=== PATIENT | male | born 1985 | race Two or more races ===

== ENCOUNTER 2020-09-10 03:55 | Inpatient (IN) | payer OTHER ==
[~2020-09-10] VITALS: Ht 175.3 cm; Wt 63.5 kg
--- NOTE | 2020-09-10 04:00 | NUR ---
Pt bibRA c/o LLQ pain x2days with nausea. Pt aaox4 breathing evenly and unlabored. Pt states that he only had one episode of emesis. Pt attached to monitor and pox. MD at bedside for eval. left ac 20g initated and blood obtained and sent to lab. Pt given blanket and call light within reach
[2020-09-10] MEDS ORDERED: ONDANSETRON HCL/PF 4 MG/2 ML VIAL ONE (04:29)
[2020-09-10] MEDS ORDERED: IV NS 0.9% 1,000 ML BAG IV ONE (04:30)
[2020-09-10] MEDS ORDERED: ONDANSETRON HCL/PF 4 MG/2 ML VIAL IVP ONE (04:30)
[2020-09-10] MEDS ORDERED: MORPHINE SULFATE INJ 4 MG/ML DISP.SYRIN ONE (04:30)
[2020-09-10] MEDS ORDERED: MORPHINE SULFATE INJ 2 MG/ML DISP.SYRIN IV ONE (04:30)
[2020-09-10 04:32] LABS: BASOPHILS % (AUTO) 0.3 % (0.0-2.0); EOSINOPHILS % (AUTO) 0.1 % (0.0-6.0); HEMATOCRIT 45 % (39-51); HEMOGLOBIN 15.9 g/dL (13.5-17.5); LYMPHOCYTES # (AUTO) 0.4 /CMM (0.8-4.8); LYMPHOCYTES % (AUTO) 2.6 % (20.0-44.0); MEAN CORPUSCULAR HGB CONC 35 g/dl (31.0-36.0); MEAN CORPUSCULAR VOLUME 89 fL (80-96); MONOCYTES % (AUTO) 6.3 % (2.0-12.0); NEUTROPHILS % (AUTO) 90.7 % (43.0-81.0); PLATELET COUNT (AUTO) 175 /CMM (150-450); RED BLOOD CELL COUNT(AUTO) 5.11 MIL/uL (4.5-6.0); WHITE BLOOD COUNT (AUTO) 15.5 K/uL (4.3-11.0)
[2020-09-10 04:37] LABS: BILIRUBIN,URINE SMALL (NEGATIVE); COLOR,URINE YELLOW (YELLOW); LEUKOCYTE ESTERASE ,URINE NEGATIVE (NEGATIVE); NITRITE, URINE NEGATIVE (NEGATIVE); PROTEIN,URINE TRACE mg/dl (NEGATIVE); UGLUCOSE NEGATIVE (NEGATIVE); UROBILINOGEN,URINE 0.2 EU/dL (0.2)
--- NOTE | 2020-09-10 04:38 | NUR ---
xray at bedside
[2020-09-10 04:43] LABS: BACTERIA,URINE None seen /HPF (None Seen); MUCUS,URINE Few /LPF (None Seen); SQUAMOUS EPITHELIAL CELL,UR Few /HPF (None Seen); WBC,URINE 0-2 /HPF (0-3)
--- NOTE | 2020-09-10 05:13 | NUR ---
Covid Antigen swab collected and sent to lab.
[2020-09-10] MEDS ORDERED: PIPERACILLIN /TAZOBACTAM 3.375 G VIAL IV ONE (05:18)
[2020-09-10 05:22] LABS: ALBUMIN 3.9 g/dL (3.4-5.0); BILIRUBIN,DIRECT 0.4 mg/dL (0.0-0.2); BILIRUBIN,TOTAL 2.3 mg/dL (0.2-1.0); CALCIUM, SERUM 8.9 mg/dL (8.5-10.1); POTASSIUM 3.6 mmol/L (3.5-5.1); TOTAL PROTEIN, SERUM 7.8 g/dL (6.4-8.2)
[2020-09-10] MEDS ORDERED: PIPERACILLIN /TAZOBACTAM 3.375 G in IV D5W 50 ML IV ONE (05:30)
--- NOTE | 2020-09-10 05:40 | NUR ---
Dr Mancera at bedside
--- NOTE | 2020-09-10 05:45 | NUR ---
consent for surgery signed
--- NOTE | 2020-09-10 05:51 | NUR ---
Call from lab. rapid covid negative.
[2020-09-10] MEDS ORDERED: ACETAMINOPHEN 325 MG TABLET PO PRN (06:00)
[2020-09-10] MEDS ORDERED: ZOLPIDEM TARTRATE 5 MG TABLET PO PRN (06:00)
[2020-09-10] MEDS ORDERED: ONDANSETRON HCL/PF 4 MG/2 ML VIAL IVP PRN (06:00)
[2020-09-10] MEDS ORDERED: PIPERACILLIN /TAZOBACTAM 3.375 G in IV D5W 50 ML IV SCH (06:00)
[2020-09-10] MEDS ORDERED: HYDROCODONE/APAP 5/325MG TABLET PO PRN (06:00)
[2020-09-10] MEDS ORDERED: MORPHINE SULFATE INJ 2 MG/ML DISP.SYRIN IV PRN ×2 (06:00→10:00)
[2020-09-10] MEDS ORDERED: Z GUARD REMEDY 2 OZ OINT TP PRN (06:00)
[2020-09-10] MEDS ORDERED: MAGNESIUM HYDROXIDE 30 ML UDC PO PRN (06:00)
--- NOTE | 2020-09-10 06:39 | NUR ---
taken to surgery. Gave report and consent forms to OR Nurse
[2020-09-10] MEDS ORDERED: SUCCINYLCHOLINE CHLORIDE 20 MG/ML VIAL ONE (06:45)
[2020-09-10] MEDS ORDERED: FENTANYL PF 100MCG/2ML AMPUL ONE (06:45)
[2020-09-10] MEDS ORDERED: MIDAZOLAM HCL 2 MG/2ML VIAL ONE (06:45)
[2020-09-10] MEDS ORDERED: ROCURONIUM BROMIDE 50 MG/5 ML ONE (06:46)
[2020-09-10] MEDS ORDERED: ANESTHESIA TRAY IN PYXIS 1 EA TRAY MC ONE (06:53)
[2020-09-10] MEDS ORDERED: BUPIVACAINE MPF 0.5% W/EPI INJ 30 ML VIAL ONE (06:53)
--- NOTE | 2020-09-10 07:02 | NUR ---
gave report to DAVID Obrien for vamsi
--- NOTE | 2020-09-10 08:40 | NUR ---
MS/RN NOTES RECEIVED PATIENT AND REPORT FROM OR NURSE. PATIENT IS ALERT AND ORIENTED X4, PATIENT IN ROOM AIR, SATURATING WELL. VITAL SIGNS TAKEN AND RECORDED, NO RESPIRATORY DISTRESS NOTED. NO COMPLAINT OF PAIN. PHYSICAL ASSESSMENT WAS DONE. WILL CONTINUE TO MONITOR.
[2020-09-10] MEDS ORDERED: PIPERACILLIN /TAZOBACTAM 3.375 G in IV D5W 100 ML IV SCH (10:00)
[2020-09-10] MEDS: METRONIDAZOLE 500MG/ NS 100ML 500 MG in PREMIX 1 EA IV SCH ×2 (10:26→17:19)
[2020-09-10] MEDS: IV NS 0.9% 1,000 ML IV PRN (10:29)
[2020-09-10] MEDS: ANCEF 1 GM/50 ML D5W IV SCH ×2 (15:47→22:43)
[2020-09-10] MEDS: HYDROCODONE/APAP 5/325MG TABLET PO PRN ×2 (17:19→21:31)
--- NOTE | 2020-09-10 18:43 | NUR ---
MS/RN CLOSING NOTES PATIENT IS IN BED COMFORTABLY. IS ALERT AND ORIENTED X4, PATIENT IN ROOM AIR, SATURATING WELL. POST APPENDECTOMY. REPORTED + FLATUS TODAY. ON LIQUID DIET. VITAL SIGNS TAKEN AND RECORDED, NO RESPIRATORY DISTRESS NOTED. PRN PAIN MEDS GIVEN ORDERED. WILL ENDORSED TO THE BUSINESS OPERATIONS COORDINATOR FOR [facility].
--- NOTE | 2020-09-10 19:00 | NUR ---
RECEIVED IN BED ALERT AND ORIENTATED SMILING ABD ROUND STATES PASSING FLATUS NO PAIN AT THIS TIME EATING A CLEAR LIQ DIET
[2020-09-10 20:00] VITALS: BP 113/69
[2020-09-11] MEDS: MAG HYDROX/AL HYDROX/SIMETH 30 ML UDC PO PRN ×2 (00:54→14:51)
[2020-09-11] MEDS: IV NS 0.9% 1,000 ML IV PRN ×2 (00:56→17:18)
[2020-09-11] MEDS: METRONIDAZOLE 500MG/ NS 100ML 500 MG in PREMIX 1 EA IV SCH ×3 (01:43→17:11)
[2020-09-11] MEDS: HYDROCODONE/APAP 5/325MG TABLET PO PRN (04:02)
--- NOTE | 2020-09-11 04:24 | NUR ---
tolerated a clear liquid dinner medicated x2 with NORCO TAB 1 for abd pain and each time effective @ 2100 and 0400. patient ambulated in the corridor around times 2 states he is passing FLATUS medicated for heartburn and effective. Explained to the patient about walking a sitting on the toilet will help relieve the "gas" form his body. incisions CDI
[2020-09-11] MEDS: ANCEF 1 GM/50 ML D5W IV SCH ×3 (06:35→23:10)
[2020-09-11 06:42] LABS: BASOPHILS % (AUTO) 0.1 % (0.0-2.0); HEMATOCRIT 43 % (39-51); HEMOGLOBIN 14.7 g/dL (13.5-17.5); LYMPHOCYTES # (AUTO) 0.6 /CMM (0.8-4.8); LYMPHOCYTES % (AUTO) 4.4 % (20.0-44.0); MEAN CORPUSCULAR HGB CONC 35 g/dl (31.0-36.0); MEAN CORPUSCULAR VOLUME 90 fL (80-96); MONOCYTES # (AUTO) 0.8 /CMM (0.1-1.30); MONOCYTES % (AUTO) 6.4 % (2.0-12.0); NEUTROPHILS # (AUTO) 11.3 /CMM (1.8-8.9); NEUTROPHILS % (AUTO) 89.1 % (43.0-81.0); PLATELET COUNT (AUTO) 190 /CMM (150-450); RED BLOOD CELL COUNT(AUTO) 4.74 MIL/uL (4.5-6.0); WHITE BLOOD COUNT (AUTO) 12.7 K/uL (4.3-11.0)
--- NOTE | 2020-09-11 07:31 | NUR ---
MS RN OPENING NOTES RECEIVED PATIENT IN BED, AWAKE, A/O X4. PATIENT ON ROOM AIR; BREATHING EVEN AND UNLABORED. MILD PAIN AT THIS TIME. LAC G # 20 IV ACCESS PRESENT, INTACT AND INFUSING NS @100 MLS/HR. SAFETY PRECAUTIONS IN PLACE; BED IN LOW POSITION AND LOCKED, RAILS UPX2, CALL LIGHT WITHIN REACH. WILL CONTINUE TO MONITOR PATIENT.
[2020-09-11 07:35] LABS: CALCIUM, SERUM 8.6 mg/dL (8.5-10.1); CREATININE 0.9 mg/dL (0.6-1.3); MAGNESIUM 2.1 mg/dL (1.8-2.4); PHOSPHORUS 2.8 mg/dL (2.5-4.9); POTASSIUM 3.7 mmol/L (3.5-5.1)
[2020-09-11 08:00] VITALS: BP 122/80
[2020-09-11 16:00] VITALS: BP 129/81
--- NOTE | 2020-09-11 18:38 | NUR ---
MS RN CLOSING NOTE PATIENT ON BED, ALERT AND ORIENTED X 4 WITH NO SIGNS OF DISTRESS. PATIENT ON ROOM AIR, TOLERATED WELL WITH NO SIGNS OF RESPIRATORY DISTRESS. PATIENT DENIES ANY PAIN OR DISCOMFORT AT THIS TIME. IV ACCESS ON THE LEFT AC GAUGE 20, COVERED WITH TEGADERM, INTACT AND PATENT. PATIENT WITH ONGOING IVF OF NORMAL SALINE RUNNING AT 100ML/HR, INFUSING WELL. SAFETY MEASURES MAINTAINED. BED IN LOWEST POSITION, BRAKES LOCKED AND SIDE RAILS UP FOR SAFETY AND BED MOBILITY. CALL LIGHT WITHIN REACH AT ALL TIMES. WILL ENDORSE CONTINUITY OF CARE TO ONCOMING SHIFT.
--- NOTE | 2020-09-11 19:40 | NUR ---
MS RN OPENING NOTE PATIENT A/OX4; ABLE TO MAKE NEEDS KNOWN. ON ROOM AIR; TOLERATING WELL WITH NO SOB. 3 ABDOMINAL DRESSINGS NOTED; KEPT C/D/I. LAC #20G INFUSING NS 100ML/HR; PATENT AND INTACT. DENIES DISCOMFORT AT THIS TIME. SAFETY MEASURES IN PLACE: BED IN LOWEST LOCKED POSITION, BED ALARMS ON, CALL LIGHT WITHIN EASY REACH. PATIENT IS STABLE AT THIS TIME; WILL CONTINUE PLAN OF CARE.
[2020-09-11 20:00] VITALS: BP 142/85
[2020-09-12] MEDS: METRONIDAZOLE 500MG/ NS 100ML 500 MG in PREMIX 1 EA IV SCH ×2 (02:04→10:14)
[2020-09-12] MEDS: ANCEF 1 GM/50 ML D5W IV SCH ×2 (06:17→14:25)
--- NOTE | 2020-09-12 06:25 | NUR ---
MS RN CLOSING NOTE PATIENT A/OX4; ABLE TO MAKE NEEDS KNOWN. ON ROOM AIR; TOLERATING WELL WITH NO SOB. 3 ABDOMINAL DRESSINGS NOTED; KEPT C/D/I. LAC #20G INFUSING NS @ 100ML/HR; PATENT AND INTACT. DENIES DISCOMFORT AT THIS TIME. SAFETY MEASURES IN PLACE: BED IN LOWEST LOCKED POSITION, BED ALARMS ON, CALL LIGHT WITHIN EASY REACH. PATIENT IS STABLE AT THIS TIME; WILL ENDORSE PLAN OF CARE TO ONCOMING MORNING RN.
[2020-09-12 06:28] LABS: BASOPHILS % (AUTO) 0.3 % (0.0-2.0); EOSINOPHILS % (AUTO) 2.2 % (0.0-6.0); HEMATOCRIT 38 % (39-51); HEMOGLOBIN 13.2 g/dL (13.5-17.5); LYMPHOCYTES # (AUTO) 0.8 /CMM (0.8-4.8); LYMPHOCYTES % (AUTO) 8.8 % (20.0-44.0); MEAN CORPUSCULAR HGB CONC 34 g/dl (31.0-36.0); MEAN CORPUSCULAR VOLUME 89 fL (80-96); MONOCYTES # (AUTO) 0.8 /CMM (0.1-1.30); MONOCYTES % (AUTO) 8.9 % (2.0-12.0); NEUTROPHILS # (AUTO) 7.5 /CMM (1.8-8.9); NEUTROPHILS % (AUTO) 79.8 % (43.0-81.0); PLATELET COUNT (AUTO) 208 /CMM (150-450); WHITE BLOOD COUNT (AUTO) 9.4 K/uL (4.3-11.0)
[2020-09-12 06:37] LABS: CALCIUM, SERUM 7.6 mg/dL (8.5-10.1); CREATININE 0.7 mg/dL (0.6-1.3); POTASSIUM 3.7 mmol/L (3.5-5.1)
--- NOTE | 2020-09-12 07:00 | NUR ---
MS RN OPENING NOTES RECEIVED PT AWAKE IN BED AT THIS TIME. AOX4.PT ABLE TO MAKE NEEDS KNOWN. NO SOB NOTED, NO S/O ANY APPARENT DISTRESS AT THIS TIME, NO C/O OF PAIN. PT STABLE ON RA. RESPIRATIONS EVEN AND UNLABORED. PT NOTED WITH THREE ABDOMINAL DRESSING, CLEAN AND DRY. IV ACCESS IN LAC G#20, INTACT PATENT AND FLUSHING WELL. ASPIRATION, FALL AND SAFETY PRECAUTIONS IN PLACE AND MAINTAINED AT ALL TIMES. BED IN LOWEST LOCKED POSITION, HOB ELEVATED, SIDE RAILS UP X 2. CALL LIGHT AND TABLE WITHIN REACH. WILL CONTINUE TO MONITOR
[2020-09-12 08:00] VITALS: BP 125/83
[2020-09-12] MEDS ORDERED: METR-147 PO (10:13)
--- NOTE | 2020-09-12 12:19 | NUR ---
PATIENT SEEN BY DR. TURNER WITH ORDERS TO CHANGE DIET TO REGULAR. ORDERS MADE AND AND READ BACK WITH MD. ORDERS VERIFIED AND CARRIED OUT. WILL FOLLOW UP WITH KITCHEN. WILL CLOSELY MONITOR PATIENT.
--- NOTE | 2020-09-12 16:26 | NUR ---
MS APPLE PICKING SUPERVISOR NOTES PT DISCHARGE TO HOME AT THIS TIME. PT MEDICALLY STABLE AND CLEARED FOR DISCHARGE BY KASH LEWIS. ALL DISCHARGE INSTRUCTIONS PROVIDED. PT VERBALIZED UNDERSTANDING. ALL CARE, NEEDS, TREATMENT AND MEDICATIONS ADMINISTERED ANTICIPATED PER ORDER. ALL BELONGINGS ACCOUNTED FOR, SIGNED BY PT AND WITH PT. ID BAND REMOVED. IV ACCESS REMOVED, PRESSURE APPLIED, SECURED WITH GAUZE AND TAPE. NO S/O BLEEDING OR INFILTRATION NOTED. PT TRANSPORTED BY WHEEL CHAIR OUT OF UNIT IN STABLE CONDITION BY FERNANDO ARECHIGA DIANE, CHARGE NURSE AND KASH LEWIS, AWARE.
== END 2020-09-12 16:30 | disposition home or self-care (01) | DRG 233 ==
LOC: ER 03:58 → MED 06:27
PROVIDERS: ADMIT Nurse Practitioner Acute Care; ATTEND Nurse Practitioner Acute Care
PROC: 0DTJ4ZZ Resection of Appendix, Percutaneous Endoscopic Approach (ICD-10-PCS; principal; 2020-09-10)
DX: K35.33 Acute appendicitis with perforation, localized peritonitis, and gangrene, with abscess (principal); E87.1 Hypo-osmolality and hyponatremia; E86.1 Hypovolemia; Z20.822 Contact with and (suspected) exposure to COVID-19; R73.9 Hyperglycemia, unspecified; K52.9 Noninfective gastroenteritis and colitis, unspecified
CPT/HCPCS: 36415; 80048-TC; 80076-TC; 81001; 83690-TC; 83735-TC; 84100-TC; 85025-TC; 87070-TC; 87075-TC; 87081-TC; 87186-TC; 88304-TC; A4216; C9803; G0378; J0330; J0690; J1100; J1885; J2250; J2270; J2405; J2543; J2704; J3010; J3490; J7030; J7060